=== PATIENT | male | born 1990 | race Caucasian/White ===

== ENCOUNTER 2023-02-11 02:13 | Emergency (ER) | payer MEDICAID, OTHER, SELFPAY ==
[2023-02-11] MEDS ORDERED: methylPREDNISolone Sod Succ/PF 125 MG/2 ML VIAL ONE (02:51)
[2023-02-11] MEDS ORDERED: Famotidine/PF 20 mg/2ml Vial ONE ×2 (02:52→03:10)
[2023-02-11] MEDS ORDERED: EPINEPHrine 1 MG/ML VIAL ONE (02:52)
== END 2023-02-11 03:23 | disposition left against medical advice (07) ==
LOC: ERS 02:13
DX: R55 Syncope and collapse (principal)
CPT/HCPCS: 93005; 96372; 96374; 96375; J0171; J2930; S0028

== ENCOUNTER 2023-07-26 00:07 | Emergency (ER) | payer OTHER, SELFPAY | END 2023-07-26 00:56 | LOC: ERS 00:07 | CPT/HCPCS: 99282 ==